=== PATIENT | female | born 1985 | race Caucasian/White ===

== ENCOUNTER → 2016-07-23 | Outpatient (CLI) | payer OTHER ==
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
== END ==
LOC: M PAIN 11:20
PROVIDERS: ATTEND Nurse Practitioner Family
DX: G89.29 Other chronic pain (principal); G54.0 Brachial plexus disorders; M79.1 Myalgia; R25.2 Cramp and spasm; M41.25 Other idiopathic scoliosis, thoracolumbar region; J45.909 Unspecified asthma, uncomplicated; K21.9 Gastro-esophageal reflux disease without esophagitis; L30.9 Dermatitis, unspecified; Z79.891 Long term (current) use of opiate analgesic; Z79.899 Other long term (current) drug therapy; Z91.410 Personal history of adult physical and sexual abuse

== ENCOUNTER → 2016-08-06 | Outpatient (CLI) | payer BC ==
--- NOTE | 2016-08-06 10:47 | REP ---
MR BRAIN WITHOUT AND WITH CONTRAST: HISTORY: Headaches. Contrast: ProHance 15.4 mL A single punctate focus of increased signal intensity on T2-weighted images is present in the periventricular white matter of the left parietal lobe. There is no intraparenchymal hemorrhage, infarct, mass or midline shift. There is no abnormal enhancement. The ventricular system is normal in appearance. There is no extracerebral collection. A tasha cisterna magna is present. Mucosal thickening is present in the ethmoid and right maxillary sinuses. IMPRESSION: There is a single punctate focus of increased signal intensity in the periventricular white matter of the left parietal lobe. This is a nonspecific finding. Signed by Juan Boothe MD 08/06/2016 10:48 A
== END ==
LOC: M RAD 08:53
PROVIDERS: ATTEND Nurse Practitioner Family
DX: R25.2 Cramp and spasm (principal)
CPT/HCPCS: 70553; A9576

== ENCOUNTER → 2019-12-10 | Outpatient (CLI) | payer OTHER | LOC: M LABSMTC 14:16 | PROVIDERS: ATTEND Family Medicine | DX: Z11.59 Encounter for screening for other viral diseases (principal); Z20.828 Contact with and (suspected) exposure to other viral communicable diseases | CPT/HCPCS: C9803; U0003 ==

== ENCOUNTER 2020-02-04 17:50 | Emergency (ER) | payer OTHER ==
[2020-02-04] MEDS ORDERED: ACETAMINOPHEN 500 MG TAB As Ordered ONE (21:06)
[2020-02-04] MEDS ORDERED: BACTRIM 160MG/800MG DS TAB As Ordered ONE (21:06)
[2020-02-05] MEDS ORDERED: ACETAMINOPHEN SUSP DYE FREE 160 MG/5 ML UDC ONE (12:58)
[2020-02-05] MEDS ORDERED: ACETAMINOPHEN SUSP DYE FREE 160 MG/5 ML UDC As Ordered ONE (12:58)
[2020-02-05] MEDS ORDERED: IBUPROFEN 100 MG/5 ML SUSP UDC DYE FREE ONE (12:58)
[2020-02-05] MEDS ORDERED: IBUPROFEN 100 MG/5 ML SUSP UDC DYE FREE As Ordered ONE (12:58)
[2020-03-02 17:18] LABS: ALBUMIN 3.4 GM/DL (3.2-5.2); ALT/SGPT 38 U/L (12-78); BILIRUBIN,DIRECT 0.2 MG/DL (0.0-0.2); BILIRUBIN,TOTAL 0.7 MG/DL (0.2-1.0); BLOOD UREA NITROGEN 9 MG/DL (7-18); CALCIUM LEVEL 8.9 MG/DL (8.5-10.1); CARBON DIOXIDE LEVEL 32 MEQ/L (21-32); CHLORIDE LEVEL 101 MEQ/L (98-107); CREATININE FOR GFR 0.73 MG/DL (0.55-1.30); GLOMERULAR FILTRATION RATE > 60.0 (>60); GLUCOSE, FASTING 104 MG/DL (70-100); SODIUM LEVEL 137 MEQ/L (136-145); TOTAL PROTEIN 7.6 GM/DL (6.4-8.2)
[2020-03-09 12:33] LABS: BASO # 0.1 10^3/uL (0.0-0.2); BASO % 0.4 % (0.0-1.0); EOS # 0.2 10^3/uL (0.0-0.5); EOS % 1.8 % (0.0-3.0); HEMOGLOBIN 13.4 g/dl (12.0-15.5); LYMPH # 2.4 10^3/uL (1.5-5.0); LYMPH % 19.5 % (24.0-44.0); MEAN CORPUSCULAR HEMOGLOBIN 28.7 pg (27.0-33.0); MEAN CORPUSCULAR HGB CONC 32.7 g/dl (32.0-36.5); MEAN CORPUSCULAR VOLUME 87.8 fl (80.0-96.0); MONO # 0.9 10^3/uL (0.0-0.8); MONO % 7.6 % (0.0-5.0); NEUTROPHILS # 8.6 10^3/uL (1.5-8.5); NEUTROPHILS % 70.4 % (36.0-66.0); PLATELET COUNT, AUTOMATED 319 10^3/uL (150-450); RED BLOOD COUNT 4.67 10^6/uL (4.00-5.40); WHITE BLOOD COUNT 12.2 10^3/uL (4.0-10.0)
[2020-03-09 12:34] LABS: ERYTHROCYTE SEDIMENTATION RATE 42 mm/hr (0-20)
== END 2020-02-04 21:09 | disposition home or self-care (01) ==
LOC: M ED 17:50
DX: S50.02XA Contusion of left elbow, initial encounter (principal); L03.112 Cellulitis of left axilla; X58.XXXA Exposure to other specified factors, initial encounter; Y92.89 Other specified places as the place of occurrence of the external cause; J45.909 Unspecified asthma, uncomplicated

== ENCOUNTER 2020-11-26 21:20 | Inpatient (IN) | payer OTHER ==
[~2020-11-26] VITALS: Ht 167.6 cm; Wt 59.4 kg
[2020-11-26 22:37] LABS: HEMATOCRIT 41.9 % (36.0-47.0); HEMOGLOBIN 13.6 g/dl (12.0-15.5); MEAN CORPUSCULAR HEMOGLOBIN 28.6 pg (27.0-33.0); MEAN CORPUSCULAR HGB CONC 32.5 g/dl (32.0-36.5); MEAN CORPUSCULAR VOLUME 88.2 fl (80.0-96.0); PLATELET COUNT, AUTOMATED 446 10^3/uL (150-450); RED BLOOD COUNT 4.75 10^6/uL (4.00-5.40); WHITE BLOOD COUNT 8.9 10^3/uL (4.0-10.0)
[2020-11-26 23:08] LABS: HCG, SERUM QUALITATIVE NEGATIVE (NEGATIVE)
[2020-11-26 23:11] LABS: AMPHETAMINES LEVEL URINE POSITIVE (NEGATIVE); BARBITURATES URINE NEGATIVE (NEGATIVE); BENZODIAZEPINES URINE NEGATIVE (NEGATIVE); CANNABINOIDS URINE NEGATIVE (NEGATIVE); COCAINE METABOLITE URINE NEGATIVE (NEGATIVE); METHADONE URINE NEGATIVE (NEGATIVE); OPIATES URINE NEGATIVE (NEGATIVE); PHENCYCLIDINE URINE NEGATIVE (NEGATIVE)
[2020-11-26 23:15] LABS: ACETAMINOPHEN LEVEL < 2.0 UG/ML (10.0-30.0); ALT/SGPT 22 U/L (12-78); BILIRUBIN,DIRECT < 0.1 MG/DL (0.0-0.2); BILIRUBIN,TOTAL 0.4 MG/DL (0.2-1.0); BLOOD UREA NITROGEN 10 MG/DL (7-18); CALCIUM LEVEL 9.2 MG/DL (8.5-10.1); CARBON DIOXIDE LEVEL 33 MEQ/L (21-32); CHLORIDE LEVEL 103 MEQ/L (98-107); CREATININE FOR GFR 0.79 MG/DL (0.55-1.30); ETHYL ALCOHOL (ETHANOL) < 0.003 % (0.000-0.010); GLOMERULAR FILTRATION RATE > 60.0 (>60); GLUCOSE, FASTING 115 MG/DL (70-100); POTASSIUM SERUM 3.9 MEQ/L (3.5-5.1); SALICYLATE LEVEL < 1.7 MG/DL (5.0-30.0); SODIUM LEVEL 139 MEQ/L (136-145); TOTAL PROTEIN 8.8 GM/DL (6.4-8.2)
[2020-11-27 00:45] LABS: CPK CREATINE PHOSPHOKINASE 102 U/L (26-192)
[2020-11-27] MEDS ORDERED: ACETAMINOPHEN TAB 650MG DOSE (2X325MG) PO PRN (03:50)
[2020-11-27] MEDS ORDERED: MAALOX 30 ML SUSP *UDC PO PRN (03:50)
[2020-11-27] MEDS ORDERED: LORazepam 2 MG TAB PO PRN (03:50)
[2020-11-27] MEDS ORDERED: MOM 30ML SUSPENSION UDC PO PRN (03:50)
[2020-11-27] MEDS ORDERED: OLANZapine ORAL DISINTEGRATING TAB 5MG PO PRN (03:50)
[2020-11-27] MEDS ORDERED: PROAAER10 INH (03:55)
[2020-11-27] MEDS ORDERED: AUGM875T28 PO (03:55)
--- NOTE | 2020-11-27 05:40 | ECGEPIP ---
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
[2020-11-27] MEDS: THIAMINE 100 MG TAB PO SCH ×2 (06:02→21:00)
[2020-11-27 08:25] VITALS: BP 160/86
[2020-11-27] MEDS: MULTIVITAMINS/MINERALS THERAP 1 TAB PO SCH (09:00)
[2020-11-27] MEDS: FOLIC ACID 1 MG TAB PO SCH (09:00)
--- NOTE | 2020-11-27 11:45 | HPEPDOC ---
[facility] Medical History & Physical Date of Admission November 26, 2020 Date of Service: November 27, 2020 Attending Physician: Suyapa Figueroa MD History and Physical MEDICAL CONSULT HISTORY OF PRESENT ILLNESS: Patient is a 35 y/o F with PMH of depression with hx of suicidal attempt who was admitted to inpatient mental health on 11/26/2020 after having come in to the emergency room admitting to suicidal thoughts. The patient stated that she's attempted to kill herself with drug overdosing but was unsuccessful with sleeping pills outside hospital. She admits to suicidal ideation often, no current plans in place outside of what she said she's already done. The patient appeared disheveled had admitted to increased lethargy and is a polysubstance drug abuser. The patient denies auditory or visual hallucinations, homicidal ideations but admits to poor sleep. The patient was admitted to inpatient mental health for unspecified depressive disorder, suicidal ideation. During my evaluation of patient on 11/27/2020, patient denied current suicidal thoughts but admitted to all of the above. Denies chest pain, shortness of breath, n/v/d, fevers, chills. REVIEW OF SYSTEMS: Neg except what is mentioned above PAST MEDICAL HISTORY: depression with hx of suicidal attempt polysubstance abuse childhood asthma PAST SURGICAL HISTORY: Cleft lip repair Feeding tube placement and removal FAMILY HISTORY: Father: HTn. Alive Mother: breast cancer. at 54 y/o SOCIAL HISTORY: Denies smoking. Hx of alcohol abuse. Amphetamine (last use several days ago) and heroin (last use >3 months ago) abuse. Currently homeless. Followed with [facility] José. No PCP. Full Code ALLERGIES: Please see below. HOME MEDICATIONS: Please see below. PHYSICAL EXAMINATION: VS: Please see below CONSTITUTIONAL: No acute distress, AAO x 3 EYES: PERRLA, EOM intact HENT, MOUTH: Normocephalic, atraumatic, moist mucous membranes NECK: SUPPLE, no JVD, no lymphadenopathy, no carotid bruit CV: Regular rate and rhythm, S1S2 normal, no murmurs/rubs/gallops RESPIRATORY: Clear to auscultation bilaterally, no rales/rhonchi/wheezes GI: BS positive in 4 quadrants, soft, nontender, nondistended, no rebound or guarding, no organomegaly : Deferred MUSCULOSKELETAL: Normal ROM. No cyanosis, clubbing, swelling, joint deformity, extremity edema INTEGUMENTARY: Intact, no rashes, no lesions, no erythema NEUROLOGIC: Cranial Nerves II-XII are intact, no focal deficits PSYCHIATRIC: depressed mood, flat affect LABORATORY DATA: Please see below IMAGING: None ASSESSMENT: 35 y/o F with PMH of depression with hx of suicidal attempt who was admitted to inpatient mental health on 11/26/2020 for unspecified depressive d/o, suicidal thoughts. PLAN: Depression, suicidal ideation -Plan per psychiatry team Polysubstance abuse -Currently no s/s of withdrawl -UDS+ -Monitor closely DISPOSITION: Thank you kindly for this consult. Will sign off but if we are needed again, please call us at any time for reassessment. Vital Signs Vital Signs Date Time Temp Pulse Resp B/P (MAP) Pulse Ox O2 Delivery O2 Flow Rate FiO2 11/27/20 08:25 78 160/86 11/27/20 08:25 98.4 16 Room Air 11/27/20 06:55 97 Laboratory Data Labs 24H Laboratory Tests 2 11/26/20 21:35: Nucleated Red Blood Cells % (auto) 0.0, Anion Gap 3L, Glomerular Filtration Rate > 60.0, Calcium Level 9.2, Total Bilirubin 0.4, Direct Bilirubin < 0.1, Aspartate Amino Transf (AST/SGOT) 14, Alanine Aminotransferase (ALT/SGPT) 22, Alkaline Phosphatase 105, Total Creatine Kinase 102, Total Protein 8.8H, Albumin 4.0, Albumin/Globulin Ratio 0.8L, Thyroid Stimulating Hormone (TSH) 1.440, Human Chorionic Gonadotropin, Qual NEGATIVE, Salicylates Level < 1.7L, Urine Opiates Screen NEGATIVE, Urine Methadone Screen NEGATIVE, Acetaminophen Level < 2.0L, Urine Barbiturates Screen NEGATIVE, Urine Phencyclidine Screen NEGATIVE, Urine Amphetamines Screen POSITIVEH, Urine Benzodiazepines Screen NEGATIVE, Urine Cocaine Metabolite Screen NEGATIVE, Urine Cannabinoids Screen NEGATIVE, Ethyl Alcohol Level < 0.003 CBC/BMP Laboratory Tests 11/26/20 21:35 Microbiology Microbiology 11/26/20 Respiratory Virus Panel (PCR) (SAM) - Final, Complete Home Medications Scheduled Amoxicillin/Potassium Clav (Augmentin 875-125 Tablet) 1 Each Tablet, 875 MG PO BID STARTED 11/18/20 Scheduled PRN Albuterol Sulfate (Proair Hfa) 8.5 Gm Hfa.aer.ad, 2 PUFF INH QID PRN for SHORTNESS OF BREATH Allergies Coded Allergies: No Known Allergies (Unverified , 11/26/20) A-FIB/CHADSVASC A-FIB History Current/History of A-Fib/PAF?: No Current PO Anticoag Therapy: No Age/Risk Factor Scoring CHADSVASC: CHADSVASC Response (Comments) Value Age Risk Factor Age < 65 years old 0 Gender Risk Factor Female 1 Hx of CHF No 0 Hx of HTN No 0 Hx of Stroke/TIA/or VTE No 0 Hx of Diabetes No 0 Hx of Vascular Disease No 0 Total 1 Treatment Treatment ordered: NONE Other anticoagulant ordered: none Suyapa Figueroa MD November 27, 2020 11:45
--- NOTE | 2020-11-27 13:56 | MHHPEPDOC ---
General Date Of Admission: November 27, 2020 Legal Status: 9.39 Chief Complaint "I thought I could get help but it's too late, I let my life get out of control." History of Present Illness HISTORY OF THE PRESENT ILLNESS: Patient is a 35 -year-old Single, Disabled, Undomiciled, , female, who reports that she has suicidal thoughts and had an attempted overdose propr to this admission that she did not disclosed to anyone stated "it wasn't enough" She presents with severe depressed/sad mood, poor self-esteem, continued suicidal ideations "I am not worth the help" reports of guilt/hopelessness/helplessness and worthlessness. She stated in the interview "It's not right that people will treat someone badly because they have issues." Patient is quite tearful in the interview and is withdrawn and guarded and declines to answer many of the questions. States, "It's not worth it, I am not worth the help." PER ED REPORT: Pt self-presented to ED for increasing depression and suicidal thoughts. Pt self-presented to ED for increasing SI with plan to overdose and increasing depression. Pt reports daily substance abuse, heroin and meth, pt. last used earlier today, positive tox. Pt reports an attempted overdose on "a good handful" of sleeping pills, stated "it just wasn't enough I guess." Pt is guarded, did not want to discuss any specifics and did not answer many questions. Pt reports that she is recently homeless, staying with family prior, however did not disclose what led to her not staying there. Pt has no prior admissions, no OP services, no AH/VH, no HI, no medications. Pt reports sleeping excessively, stating "if I'm not doing drugs, I am asleep." Pt appears disheveled, avoided eye contact, and faced the wall during MHE. Psychiatric Review of Systems Depression (2 or more weeks): depressed mood, feelings of excess/guilt (hopeless, helpless), appetite changes, suicidal thoughts Lesa (4 or more days of): denies Psychosis: denies PTSD: history of trauma, other (patient won't disclose any information) Anxiety: situational anxiety, stressor related anxiety Past Psychiatric History Previous Psychiatric Diagnosis: Anxiety and Depression Previous Psychiatric Admissions: This is the first hospitalization Suicide Attempts: had an overdose Psychiatric Follow-up: [facility] a "few years ago" Psychiatric medications: Lexapro, Zoloft, Xanax in the past Past Medical History Medical Problems depression with hx of suicidal attempt polysubstance abuse childhood asthma Cleft lip repair Feeding tube placement and removal Head Injury: No Seizures: No Hospitalizations: Yes Surgeries: Yes Family Medical/Psychiatric HX Medical Problems Father - alive with HTN Mother - Cancer Psychiatric Disorders: Yes (Bipolar, Sister) Addiction: Yes (father - Alcohol) Suicide Attemps/Completions: No Addiction History methamphetamines (last used 11/26/20), heroin (in the past) Social History Childhood: She was born in [place], [place] reports that her childhood was "ok" I had everything I needed, "It was my parents (Dad was ) and my sister. My grandparents were around too" Abuse/Trauma: Yes but wont' disclose information Current Living Situation: Was living with family, but states that she lives alone (Per ED report she is homeless) Education: High School Graduate Employment: Unemployed, states that she does not receive assistance Stressors: "I beat myself up over everything" Social Support: Reports none Legal: None Marital: Single. Mental Status Examination General Appearance: unkempt, disheveled, ds/not appear stated age (appears older), hospital scubs/clothing Build: average Demeanor: mistrustful, withdrawn, guarded Eye Contact: poor Activity: anxious Behavior: loss of interests, anhedonia, withdrawn Speech: low in volume Mood: depressed, anxious Affect: constricted, anxious Thought Process: logical/linear, depressed, slow Thought Content (Delusions): none reported Thought Content (Other): guarded Thought Content (Aggressive): none reported Perception (Hallucinations): none reported Perception (Other): none reported Cognition (Impairment of): none reported Cognition(Intelligence Est.): average Oriented: Awake, Alert, Oriented times three Insight: other (impaired) Judgment: Other (impaired) Psychosis: Denies Diagnoses Major Depressive Disorder, Single Episode, Moderate Methamphetamine Use Disorder Heroin Use Disorder A-FIB/CHADSVASC A-FIB History Current/History of A-Fib/PAF?: No Current PO Anticoag Therapy: No Age/Risk Factor Scoring CHADSVASC: CHADSVASC Response (Comments) Value Age Risk Factor Age < 65 years old 0 Gender Risk Factor Female 1 Hx of CHF No 0 Hx of HTN No 0 Hx of Stroke/TIA/or VTE No 0 Hx of Diabetes No 0 Hx of Vascular Disease No 0 Total 1 Assessment Patient is a 35 -year-old Single, Disabled, Undomiciled, , female, who reports that she has suicidal thoughts and had an attempted overdose propr to this admission that she did not disclosed to anyone stated "it wasn't enough" She presents with severe depressed/sad mood, poor self-esteem, continued suicidal ideations "I am not worth the help" reports of guilt/hopelessness/helplessness and worthlessness. She stated in the interview "It's not right that people will treat someone badly because they have issues." Patient is quite tearful in the interview and is withdrawn and guarded and decl salud to answer many of the questions. States, "It's not worth it, I am not worth the help." Patient is alert and oriented, very guarded and withdrawn. She is very tearful in the interview. Calm and Cooperative although states that she wants to go, she doesn't need the help because other people are worse off than she is.. She makes poor eye contact, her speech is spontaneous but impoverished many times in the interview. She denies any psychotic symptoms (no AH/VH/TH, denies manic symptoms, paranoia, delusions or bizarre thoughts) Her cognition/Intelligence is alert and oriented, average. Memory is intact. Depressed mood and constricted/flat affect. Impaired insight and judgment. Pat ient to be admitted to my service on a .39 legal status. Diagnosis Major Depressive Disorder, Single Episode, Moderate. Will start patient on Wellbutrin 50 mg today and titrate to therapeutic levels, Zyprexa Zydis 5 mg Q 6HOurs for agitation. Zofran 4 mg BID for nausea, Clonidine 01.mg patch. Initial Treatment Plan 1. Patient was admitted on a [9.39] status. 2. Complete history was obtained. 3. With patients permission, family will be contacted and database will be ex panded. 4. Patients medication regimen will be reviewed and changed accordingly. 5. Patient will be provided with protected environment. 6. Patient will be treated with individual, group, and milieu therapies. 7. Patient will receive supportive psych-education. 8. Discharge planning will commence immediately. 9. Outpatient follow-up treatment will be strongly recommended. 10. The initial treatment plan will focus initially on: * Depression. * Risk for suicide. * Rehab treatment ESTIMATED LENGTH OF STAY: 5-7 DAYS. TIME SPENT COUNSELING AND COORDINATING INITIAL CARE: 60 minutes. N/A-No Antipsychotics Vital Signs Vital Signs Date Time Temp Pulse Resp B/P (MAP) Pulse Ox O2 Delivery O2 Flow Rate FiO2 11/27/20 08:25 78 160/86 11/27/20 08:25 98.4 16 Room Air 11/27/20 06:55 97 Laboratory Data 24H Labs Laboratory Tests 2 11/26/20 21:35: Nucleated Red Blood Cells % (auto) 0.0, Anion Gap 3L, Glomerular Filtration Rate > 60.0, Calcium Level 9.2, Total Bilirubin 0.4, Direct Bilirubin < 0.1, Aspartate Amino Transf (AST/SGOT) 14, Alanine Aminotransferase (ALT/SGPT) 22, Alkaline Phosphatase 105, Total Creatine Kinase 102, Total Protein 8.8H, Albumin 4.0, Albumin/Globulin Ratio 0.8L, Thyroid Stimulating Hormone (TSH) 1.440, Human Chorionic Gonadotropin, Qual NEGATIVE, Salicylates Level < 1.7L, Urine Opiates Screen NEGATIVE, Urine Methadone Screen NEGATIVE, Acetaminophen Level < 2.0L, Urine Barbiturates Screen NEGATIVE, Urine Phencyclidine Screen NEGATIVE, Urine Amphetamines Screen POSITIVEH, Urine Benzodiazepines Screen NEGATIVE, Urine Cocaine Metabolite Screen NEGATIVE, Urine Cannabinoids Screen NEGATIVE, Ethyl Alcohol Level < 0.003 CBC/BMP Laboratory Tests 11/26/20 21:35 Medications Scheduled Amoxicillin/Potassium Clav (Augmentin 875-125 Tablet) 1 Each Tablet, 875 MG PO BID, (Reported) STARTED 11/18/20 Scheduled PRN Albuterol Sulfate (Proair Hfa) 8.5 Gm Hfa.aer.ad, 2 PUFF INH QID PRN for SHORTNESS OF BREATH, (Reported) Allergies Coded Allergies: No Known Allergies (Unverified , 11/26/20) GARRY RODRIGUEZ NP November 27, 2020 13:07
[2020-11-27] MEDS ORDERED: ONDANSETRON 4 MG TAB PO PRN (14:10)
[2020-11-27] MEDS ORDERED: LOPERAMIDE 2 MG CAPLET PO PRN (14:10)
[2020-11-27 16:05] VITALS: BP 130/84
[2020-11-27 17:14] VITALS: BP 130/84
[2020-11-27] MEDS: traZODone 50 MG TAB PO PRN (21:07)
[2020-11-28] MEDS ORDERED: cloNIDine HCL 0.1 MG/24 HR PATCH TOP SCH (09:00)
[2020-11-28] MEDS: FOLIC ACID 1 MG TAB PO SCH (09:00)
[2020-11-28] MEDS: THIAMINE 100 MG TAB PO SCH ×2 (09:00→21:00)
[2020-11-28] MEDS: MULTIVITAMINS/MINERALS THERAP 1 TAB PO SCH (09:00)
[2020-11-28] MEDS: buPROPion 100 MG TAB PO SCH (09:00)
--- NOTE | 2020-11-28 10:40 | MHIPNPDOC ---
[facility] Progress Note Progress Note DATE OF SERVICE: 11/28/20 HISTORY: Patient is a 35 -year-old Single, Disabled, Undomiciled, , female, who reports that she has suicidal thoughts and had an attempted overdose prior to this admission that she did not disclosed to anyone stated "it wasn't enough" She presents with severe depressed/sad mood, poor self-esteem, continued suicidal ideations "I am not worth the help" reports of guilt/hopelessness/helplessness and worthlessness. She stated in the interview "It's not right that people will treat someone badly because they have issues." Patient is quite tearful in the interview and is withdrawn and guarded and declines to answer many of the questions. States, "It's not worth it, I am not worth the help." PER ED REPORT: Pt self-presented to ED for increasing depression and suicidal thoughts. Pt self-presented to ED for increasing SI with plan to overdose and increasing depression. Pt reports daily substance abuse, heroin and meth, pt. last used earlier today, positive tox. Pt reports an attempted overdose on "a good handful" of sleeping pills, stated "it just wasn't enough I guess." Pt is guarded, did not want to discuss any specifics and did not answer many questions. Pt reports that she is recently homeless, staying with family prior, however did not disclose what led to her not staying there. Pt has no prior admissions, no OP services, no AH/VH, no HI, no medications. Pt reports sleeping excessively, stating "if I'm not doing drugs, I am asleep." Pt appears disheveled, avoided eye contact, and faced the wall during MHE. VITAL SIGNS: See below. CURRENT MEDICATIONS: See below. MENTAL STATUS EXAMINATION: Patient is a 35 -year-old Single, Disabled, Undomiciled, , female, who reports that she has suicidal thoughts and had an attempted overdose prior to this admission that she did not disclosed to anyone stated "it wasn't enough" Speech: Is spontaneous low/slow rate, tone and volume Language skills are intact Thought processes including: linear and goal oriented Thought content: denies depression and anxiety. Denies suicidal/homicidal ideation, planning or intent. Abstract reasoning, and computation: fair Description of associations: denies, none observed Description of abnormal or psychotic thoughts: denies, none observed. Judgment: fair Insight: fair Orientation: alert and oriented to person, place, time and situation Recent and remote memory: intact Attention span and concentration: good Language: expansive Fund of knowledge: average Mood: Depressed Mood Affect: Constricted DIAGNOSES: Major Depressive Disorder, Single Episode, Moderate Methamphetamine Use Disorder Heroin Use Disorder ASSESSMENT: Patient reports no depressive or anxious symptoms but is observed to be depressed with constricted affect. She appears to be minimizing her symptoms and states that she needs to leave, get a job and find a place to live." She reports that she has a place to live and wants to be discharged. Patient appears to have rapid resolution and does not have good insight or judgment stating that she does not need medications or any help. She also stated that there is not any need for anyone to help her. She appears to be have severe self loathing of herself. "There is not help for me." Given that she had reported severe suicidal ideations and had an unreported suicide attempt, I do not feel patient is appropriate for discharge at this time. MANAGEMENT PLAN: Continue all medications, possible. discharge on Tuesday TIME SPENT: 25 minutes. Vital Signs Vital Signs Date Time Temp Pulse Resp B/P (MAP) Pulse Ox O2 Delivery O2 Flow Rate FiO2 11/27/20 17:14 108 130/84 11/27/20 16:05 97.1 16 11/27/20 08:25 Room Air 11/27/20 06:55 97 Current Medications Current Medications Medications (Trade) Dose Ordered Sig/Az Route PRN Reason Start Time Stop Time Status Last Admin Dose Admin Acetaminophen (Tylenol Tab) 650 mg Q6HP PRN PO HEADACHE or DISCOMFORT 11/27/20 03:50 Al Hydrox/Mg Hydrox/Simethicone (Mylanta) 30 ml Q4HP PRN PO HEARTBURN/INDIGESTION 11/27/20 03:50 Bupropion HCl (Wellbutrin) 50 mg DAILY PO 11/28/20 09:00 11/29/20 12:00 Bupropion HCl (Wellbutrin) 75 mg BID PO 11/30/20 09:00 Clonidine HCl (Lxtwxncy-Vwt-0) 1 ea Fr@09 TOP 11/28/20 09:00 Folic Acid (Folic Acid) 1 mg DAILY PO 11/27/20 09:00 Home Med (Med Rec Complete!) ASDIRECTED XX 11/27/20 03:55 11/27/20 03:57 DC Loperamide HCl (Imodium) 2 mg ASDIRECTED PRN PO DIARRHEA 11/27/20 14:10 Lorazepam (Ativan) 2 mg ASDIRECTED PRN PO SEE PROTOCOL 11/27/20 03:50 Magnesium Hydroxide (Milk Of Magnesia) 30 ml DAILYPRN PRN PO CONSTIPATION 11/27/20 03:50 Multivitamins (Theragram-M) 1 tab DAILY PO 11/27/20 09:00 Olanzapine (ZyPREXA ZYDIS) 5 mg Q4HP PRN PO AGITATION/ANXIETY 11/27/20 03:50 11/27/20 21:08 Ondansetron HCl (Zofran) 4 mg BIDP PRN PO NAUSEA 11/27/20 14:10 Thiamine HCl (Thiamine HCl) 100 mg BID PO 11/27/20 03:52 11/29/20 21:01 11/27/20 06:02 Trazodone HCl (Desyrel) 50 mg QHSP PRN PO INSOMNIA 11/27/20 03:50 11/27/20 21:07 Allergies Coded Allergies: No Known Allergies (Unverified , 11/26/20) GARRY RODRIGUEZ NP November 28, 2020 10:40
[2020-11-28] MEDS ORDERED: LORazepam 1 MG TAB PO ONE (13:10)
[2020-11-28 18:25] VITALS: BP 140/71
[2020-11-28 19:15] VITALS: BP 140/71
[2020-11-29 02:30] VITALS: BP 105/70
[2020-11-29 06:38] VITALS: BP 105/70
[2020-11-29] MEDS: THIAMINE 100 MG TAB PO SCH ×2 (09:00→20:22)
[2020-11-29] MEDS: FOLIC ACID 1 MG TAB PO SCH (09:00)
[2020-11-29] MEDS: MULTIVITAMINS/MINERALS THERAP 1 TAB PO SCH (09:00)
[2020-11-29] MEDS: buPROPion 100 MG TAB PO SCH (09:00)
[2020-11-29 16:49] VITALS: BP 125/69
--- NOTE | 2020-11-29 18:30 | MHIPN ---
PSYCHIATRIC HOSPITAL PROGRESS NOTE DATE: 11/29/2020 The patient is seen via telepsychiatry. The patient states that he is doing good and that he slept good, and that he has no complaints. MENTAL STATUS EXAMINATION: The patient is alert and oriented times three. Eye contact is fairly good. There is no formal thought disorder noted. He says his mood is good. Affect is flat. He is not psychotic, suicidal, or homicidal. Concentration is fair. Memory is intact. Insight and judgment fair. DIAGNOSES: 1. Major depressive disorder, single episode, moderate. 2. Methamphetamine use disorder. 3. Heroin use disorder. TREATMENT PLAN: At this point, we will continue to monitor the patient for continued elevation and stabilization of his mood and continued resolution of suicidal ideation.
[2020-11-29] MEDS: traZODone 50 MG TAB PO PRN (20:22)
[2020-11-30 06:42] VITALS: BP 100/55
[2020-11-30] MEDS: FOLIC ACID 1 MG TAB PO SCH (09:00)
[2020-11-30] MEDS: MULTIVITAMINS/MINERALS THERAP 1 TAB PO SCH (09:00)
[2020-11-30] MEDS: buPROPion 75 MG TAB PO SCH ×2 (09:00→21:00)
[2020-11-30 18:07] VITALS: BP 120/68
[2020-11-30 23:06] VITALS: BP 132/72
--- NOTE | 2020-11-30 23:24 | IPNPDOC ---
Text Note Date of Service The patient was seen on 11/30/20. NOTE Time of service 1123pm I received a call from the patient's RN that the pt rolled out of bed while sleeping and hit the right part of her face. At the time of my visit the pt was c/o facial pain and some neck pain w lateral movement. She was alert and able to answer questions appropriately Plan: acetaminophen/ neurochecks for 24H/ f/u CT head and neck / ice pack VS,Fishbone, I+O VS, Fishbone, I+O Vital Signs Date Time Temp Pulse Resp B/P (MAP) Pulse Ox O2 Delivery O2 Flow Rate FiO2 11/30/20 23:06 83 18 132/72 (92) 99 Room Air 11/30/20 18:07 98.9 ABISAI CALLAHAN MD November 30, 2020 23:24
--- NOTE | 2020-11-30 23:46 | REPVR ---
PROCEDURE INFORMATION: Exam: CT Head Without Contrast Exam date and time: 11/30/2020 11:32 PM Age: 35 years old Clinical indication: Injury or trauma; Fall; Blunt trauma (contusions or hematomas); Additional info: Fall onto right side of face TECHNIQUE: Imaging protocol: Computed tomography of the head without contrast. Radiation optimization: All CT scans at this facility use at least one of these dose optimization techniques: automated exposure control; mA and/or kV adjustment per patient size (includes targeted exams where dose is matched to clinical indication); or iterative reconstruction. COMPARISON: MRI-Brain W/O FOLL BY WITH 2016-08-06 09:17 FINDINGS: Limitations: Motion artifact does moderately limit the sensitivity of this examination. Brain: Steve cisterna magna, or small posterior fossa arachnoid cyst. Cerebral ventricles: No ventriculomegaly. Bones/joints: Unremarkable. No acute fracture. Paranasal sinuses: Visualized sinuses are unremarkable. No fluid levels. Mastoid air cells: Visualized mastoid air cells are well aerated. Soft tissues: Right periorbital soft tissue contusion. IMPRESSION: No acute intracranial abnormality. Electronically signed by: Dayday Hagan On 11/30/2020 23:45:53 PM
--- NOTE | 2020-11-30 23:49 | REPVR ---
PROCEDURE INFORMATION: Exam: CT Neck Without Contrast Exam date and time: 11/30/2020 11:32 PM Age: 35 years old Clinical indication: Injury or trauma; Fall; Blunt trauma (contusions or hematomas); Additional info: Neck pain after a fall TECHNIQUE: Imaging protocol: Computed tomography images of the neck without contrast. Radiation optimization: All CT scans at this facility use at least one of these dose optimization techniques: automated exposure control; mA and/or kV adjustment per patient size (includes targeted exams where dose is matched to clinical indication); or iterative reconstruction. COMPARISON: No relevant prior studies available. FINDINGS: Nasopharynx: Unremarkable. Oropharynx: Unremarkable. No significant tonsillar enlargement. Hypopharynx: Unremarkable. Larynx: Unremarkable. Normal epiglottis. Retropharyngeal space: Unremarkable. Submandibular/Parotid glands: Normal. Glands are normal in size. Thyroid: Normal. No enlarged or calcified nodules. Lymph nodes: Unremarkable. No lymphadenopathy. Trachea: Visualized trachea is unremarkable. Lungs: Unremarkable as visualized. Bones/joints: Small C4-C6 disc bulge/protrusions with mild stenosis. Normal spinal curvature, vertebral body heights, and alignment. No spinal fracture or acute subluxation. Soft tissues: Unremarkable. No significant soft tissue swelling. IMPRESSION: 1. No acute vertebral fracture/subluxation. 2. Small C4-C6 disc bulge/protrusions with mild stenosis. Electronically signed by: Dayday Hagan On 11/30/2020 23:49:17 PM
[2020-12-01 07:11] VITALS: BP 95/57
[2020-12-01] MEDS: FOLIC ACID 1 MG TAB PO SCH (09:00)
[2020-12-01] MEDS: MULTIVITAMINS/MINERALS THERAP 1 TAB PO SCH (09:00)
[2020-12-01] MEDS: buPROPion 75 MG TAB PO SCH (09:00)
[2020-12-01] MEDS ORDERED: BUPR75TA5 PO (09:40)
[2020-12-01] MEDS ORDERED: TRAZ-252 PO (09:40)
--- NOTE | 2020-12-01 12:04 | MHDSPDOC ---
[facility] Discharge Summary Discharge Summary DATE OF ADMISSION: November 26, 2020 at 21:21 DATE OF DISCHARGE: December 01, 2020 at 1151 DISCHARGE DIAGNOSES: 1. Major depressive disorder, single episode, moderate. 2. Methamphetamine use disorder. 3. Heroin use disorder. REASON FOR ADMISSION:Patient is a 35 -year-old Single, Disabled, Undomiciled, female, who reports that she has suicidal thoughts and had an attempted overdose prior to this admission that she did not disclosed to anyone stated "it wasn't enough" She presents with severe depressed/sad mood, poor self-esteem, continued suicidal ideations "I am not worth the help" reports of guilt/hopelessness/helplessness and worthlessness. She stated in the interview "It's not right that people will treat someone badly because they have issues." Patient is quite tearful in the interview and is withdrawn and guarded and declines to answer many of the questions. States, "It's not worth it, I am not worth the help." PER ED REPORT: Pt self-presented to ED for increasing depression and suicidal thoughts. Pt self-presented to ED for increasing SI with plan to overdose and increasing depression. Pt reports daily substance abuse, heroin and meth, pt. last used earlier today, positive tox. Pt reports an attempted overdose on "a good handful" of sleeping pills, stated "it just wasn't enough I guess." Pt is guarded, did not want to discuss any specifics and did not answer many questions. Pt reports that she is recently homeless, staying with family prior, however did not disclose what led to her not staying there. Pt has no prior admissions, no OP services, no AH/VH, no HI, no medications. Pt reports sleeping excessively, stating "if I'm not doing drugs, I am asleep." Pt appears dis heveled, avoided eye contact, and faced the wall during MHE. VITAL SIGNS: See below. CONSULTANTS INVOLVED: See Medical H + P by Hospitalist TREATMENT AND PROGRESS ON THE UNIT: Patient was admitted to the [facility] on a legal status he was afforded the following treatment modalities: 1) Individual Therapy 2) Group Therapy 3) Medication Management 4) Milieu Therapy 5) Safe Environment HOSPITAL COURSE: Patient was admitted to [facility] on a legal status. She was requesting to be discharged on the day that she had been initially seen for her psychiatric evaluation. Although she had denied any suicidal thoughts, depression or anxiety she had cried throughout most of her interview and was held over the weekend. She had been observed with poor self-esteem, anxiety and depressed mood. She had rapid resolution with regards to her suicidality. In today's meeting, she had improved in her mood and affect but she reported that she did not rehab or any help with substance use. Attempted to work with the patient to discuss her use and she declined to engage in the interview. Patient is requesting to be discharged, stating that she is not a danger to herself or others and that she is returning to her Grandmother's home. States that she is following up at [facility], she declines any help with medications. She is agreeable to Wellbutrin and Trazodone. DISCHARGE ASSESSMENT: In today's interview, patient is alert and oriented, pts dress is appropriate. Hygiene and grooming is well-kempt. Smiles on approach and is pleasant and engaged in the interview. Denies depression and anxiety. Denies suicidal and homicidal ideation, planning or intent. Denies and is not observed with kiki, psychotic symptoms of delusions, bizarre thinking, obsessions, paranoia, ruminations illogical thoughts, flight of ideas or having poor insight and judgement. Patient has normal mentation, declines further hospitalization on a voluntary status and meets criteria for discharge today. Patient encouraged to return to hospital if symptoms worsen or change and encouraged to call unit if he/she/they needs to speak to provider for questions regarding medications or care. MENTAL STATUS EXAMINATION ON DISCHARGE: :Patient is a 35 -year-old Single, Disabled, Undomiciled, female, who reports that she has suicidal thoughts and had an attempted overdose prior to this admission Speech: Is fluid, conversant, normal rate, tone and volume Language skills are intact Thought processes including: linear and goal oriented Thought content: denies depression and anxiety. Denies suicidal/homicidal ideation, planning or intent. Abstract reasoning, and computation: fair Description of associations: denies, none observed Description of abnormal or psychotic thoughts: denies, none observed. Judgment: fair Insight: fair Orientation: alert and oriented to person, place, time and situation Recent and remote memory: intact Attention span and concentration: good Language: expansive Fund of knowledge: average Mood: Euthymic Mood Affect: Flat MEDICATIONS ON DISCHARGE: See Medication Reconciliation PLAN/FOLLOWUP ARRANGEMENTS: The amount of time spent in the coordination of care for this patient was approximately 25 minutes. ETOH/Disorder Med Rx ETOH/DRUG DISORDER RX: Offrd @ d/c & pt refused Vital Signs/I&Os Vital Signs Date Time Temp Pulse Resp B/P (MAP) Pulse Ox O2 Delivery O2 Flow Rate FiO2 12/01/20 07:11 98.7 66 18 95/57 (70) 99 Room Air Laboratory Data Microbiology Microbiology 11/26/20 Respiratory Virus Panel (PCR) (SAM) - Final, Complete Medications Scheduled Bupropion HCl (Bupropion HCl) 75 Mg Tablet, 75 MG PO BID for Depression, #14 Scheduled PRN Albuterol Sulfate (Proair Hfa) 8.5 Gm Hfa.aer.ad, 2 PUFF INH QID PRN for SHORTNESS OF BREATH, (Reported) Trazodone HCl (Trazodone HCl) 50 Mg Tablet, 50 MG PO QHSP PRN for INSOMNIA, #7 Allergies Coded Allergies: No Known Allergies (Unverified , 11/26/20) GARRY RODRIGUEZ [employer]IA SALES CONSULTANT December 01, 2020 11:52
--- NOTE | 2020-12-01 18:25 | MHIPN ---
[facility] PROGRESS NOTE DATE: 11/30/2020 CHIEF COMPLAINT: The patient states "I'm fine, I'm just tired." SUBJECTIVE: She says she slept good and has no complaints. MENTAL STATUS EXAMINATION: She is alert and oriented x3. Eye contact is fairly good. Psychomotor activity is normal. There is no formal thought disorder noted. Mood is "tired." Affect appropriate. She is not psychotic. She is denying suicidal or homicidal ideations. DIAGNOSES: 1. Major depressive disorder, single episode, moderate. 2. Methamphetamine use disorder. 3. Heroin use disorder. TREATMENT PLAN: At this point, we will continue to monitor the patient for continued elevation and stabilization of his mood and continued resolution of suicidal ideation. MICHAEL
== END 2020-12-01 12:35 | disposition home or self-care (01) | DRG 751 ==
LOC: M ED 21:20 → M PSY 21:21 → M ED INP 21:21 → M PSY 11-27 08:09
PROVIDERS: ADMIT Psychiatry & Neurology Psychiatry; ATTEND Psychiatry & Neurology Psychiatry
DX: F32.1 Major depressive disorder, single episode, moderate (principal); R45.851 Suicidal ideations; F11.10 Opioid abuse, uncomplicated; F15.10 Other stimulant abuse, uncomplicated; Z91.5 Personal history of self-harm; Z81.8 Family history of other mental and behavioral disorders; Z81.1 Family history of alcohol abuse and dependence; Z59.0 Homelessness; S00.83XA Contusion of other part of head, initial encounter; W06.XXXA Fall from bed, initial encounter; Y92.230 Patient room in hospital as the place of occurrence of the external cause

== ENCOUNTER 2020-12-18 20:22 | Emergency (ER) | payer OTHER ==
[~2020-12-18] VITALS: Ht 170.2 cm; Wt 54.5 kg
[~2020-12-18 20:22] MED LIST: AUGM875T28 PO; BUPR75TA5 PO; PROAAER10 INH; TRAZ-252 PO
[2020-12-18 21:34] LABS: HEMATOCRIT 39.3 % (36.0-47.0); HEMOGLOBIN 12.6 g/dl (12.0-15.5); MEAN CORPUSCULAR HGB CONC 32.1 g/dl (32.0-36.5); MEAN CORPUSCULAR VOLUME 90.6 fl (80.0-96.0); PLATELET COUNT, AUTOMATED 157 10^3/uL (150-450); RED BLOOD COUNT 4.34 10^6/uL (4.00-5.40); WHITE BLOOD COUNT 10.9 10^3/uL (4.0-10.0)
[2020-12-18 22:10] LABS: AMPHETAMINES LEVEL URINE POSITIVE (NEGATIVE); BARBITURATES URINE NEGATIVE (NEGATIVE); BENZODIAZEPINES URINE NEGATIVE (NEGATIVE); CANNABINOIDS URINE POSITIVE (NEGATIVE); COCAINE METABOLITE URINE NEGATIVE (NEGATIVE); HCG, SERUM QUALITATIVE NEGATIVE (NEGATIVE); METHADONE URINE NEGATIVE (NEGATIVE); OPIATES URINE NEGATIVE (NEGATIVE); PHENCYCLIDINE URINE NEGATIVE (NEGATIVE)
[2020-12-18 22:23] LABS: ACETAMINOPHEN LEVEL < 2.0 UG/ML (10.0-30.0); ALBUMIN 4.1 GM/DL (3.2-5.2); ALT/SGPT 34 U/L (12-78); BILIRUBIN,DIRECT 0.5 MG/DL (0.0-0.2); BILIRUBIN,TOTAL 2.8 MG/DL (0.2-1.0); BLOOD UREA NITROGEN 16 MG/DL (7-18); CARBON DIOXIDE LEVEL 25 MEQ/L (21-32); CHLORIDE LEVEL 104 MEQ/L (98-107); CREATININE FOR GFR 0.97 MG/DL (0.55-1.30); ETHYL ALCOHOL (ETHANOL) < 0.003 % (0.000-0.010); GLOMERULAR FILTRATION RATE > 60.0 (>60); GLUCOSE, FASTING 143 MG/DL (70-100); POTASSIUM SERUM 3.2 MEQ/L (3.5-5.1); SALICYLATE LEVEL < 1.7 MG/DL (5.0-30.0); SODIUM LEVEL 139 MEQ/L (136-145); THYROID STIMULATING HORMONE 0.973 uIU/ML (0.358-3.740); TOTAL PROTEIN 8.1 GM/DL (6.4-8.2)
[2020-12-19 16:34] VITALS: BP 110/62
== END 2020-12-19 16:39 | disposition home or self-care (01) ==
LOC: M ED 12-19 01:19
DX: Z04.6 Encounter for general psychiatric examination, requested by authority (principal); F19.129 Other psychoactive substance abuse with intoxication, unspecified; F33.9 Major depressive disorder, recurrent, unspecified; F17.200 Nicotine dependence, unspecified, uncomplicated; Z79.899 Other long term (current) drug therapy; Z91.5 Personal history of self-harm

== ENCOUNTER 2025-01-11 07:49 | Inpatient (IN) | payer OTHER ==
[~2025-01-11] VITALS: Ht 167.6 cm; Wt 56.5 kg
[2025-01-11] MEDS ORDERED: ESOM20CA2 PO (09:55)
[2025-01-11] MEDS ORDERED: ALBU8.5H INH (09:55)
[2025-01-11] MEDS ORDERED: HOME MED LIST COMPLETE! XX SCH (09:55)
[2025-01-11] MEDS ORDERED: GNPTAB35 PO (09:55)
[2025-01-11 10:41] LABS: BARBITURATES URINE NEGATIVE (NEGATIVE); BENZODIAZEPINES URINE NEGATIVE (NEGATIVE)
[2025-01-11 10:42] LABS: CANNABINOIDS URINE NEGATIVE (NEGATIVE); METHADONE URINE NEGATIVE (NEGATIVE); OPIATES URINE NEGATIVE (NEGATIVE); PHENCYCLIDINE URINE NEGATIVE (NEGATIVE)
[2025-01-11 10:45] LABS: PLATELET COUNT, AUTOMATED 209 10^3/uL (150-450)
[2025-01-11 10:46] LABS: AMPHETAMINES LEVEL URINE POSITIVE (NEGATIVE); COCAINE METABOLITE URINE POSITIVE (NEGATIVE)
[2025-01-11 10:58] LABS: ETHYL ALCOHOL (ETHANOL) < 0.003 % (0.000-0.010)
[2025-01-11 11:00] LABS: ALT/SGPT 11 U/L (7.0-40); AST/SGOT 11 U/L (<34); CALCIUM LEVEL 8.3 MG/DL (8.5-10.1); CARBON DIOXIDE LEVEL 26 MMOL/L (20-31); CHLORIDE LEVEL 106 MMOL/L (98-107); CREATININE FOR GFR 0.69 MG/DL (0.55-1.30); GLOMERULAR FILTRATION RATE > 90.0 (>60); POTASSIUM SERUM 4.0 MMOL/L (3.5-5.1); SALICYLATE LEVEL < 3.0 MG/DL (<30); SODIUM LEVEL 143 MMOL/L (136-145)
[2025-01-11 11:09] LABS: HCG, SERUM QUALITATIVE NEGATIVE (NEGATIVE)
[2025-01-11] MEDS ORDERED: IBUPROFEN 400 MG TAB PO PRN (11:55)
[2025-01-11] MEDS ORDERED: MOM 30 ML SUSPENSION UDC PO PRN (11:55)
[2025-01-11] MEDS ORDERED: traZODone 50 MG TAB PO PRN (11:55)
[2025-01-11] MEDS ORDERED: MAALOX 30 ML SUSP *UDC PO PRN (11:55)
[2025-01-11] MEDS ORDERED: ALBUTEROL 90 MCG/ACT 8 GM HFA INHALER INH PRN (12:00)
[2025-01-12 06:29] VITALS: BP 94/56; TEMP 97.8; O2SAT 100
[2025-01-12 07:41] VITALS: BP 101/61
[2025-01-12 15:33] VITALS: BP 99/52; TEMP 98; O2SAT 96
[2025-01-14] MEDS: ESCITALOPRAM OXALATE 10 MG TABLET PO SCH (10:45)
[2025-01-14 15:31] VITALS: BP 92/52; TEMP 97.7; O2SAT 99
[2025-01-15 06:28] VITALS: BP 131/72; TEMP 98.4; O2SAT 97
[2025-01-16 06:08] VITALS: BP 103/59; TEMP 97.8; O2SAT 96
[2025-01-18 06:55] VITALS: BP 95/55; TEMP 98.8; O2SAT 100
[2025-01-18] MEDS: OLANZapine 5 MG TAB PO SCH (09:25)
[2025-01-19 06:45] VITALS: BP 107/57; TEMP 98.2; O2SAT 98
[2025-01-21 06:39] VITALS: BP 83/57; TEMP 97.8; O2SAT 99
[2025-01-22] MEDS: ESCITALOPRAM OXALATE 5 MG TABLET PO SCH (09:41)
[2025-01-22] MEDS: OLANZapine 5 MG TAB PO SCH (21:00)
[2025-01-23 06:22] VITALS: BP 128/61; TEMP 97.8; O2SAT 99
[2025-01-24 06:06] VITALS: BP 122/74; TEMP 97.9; O2SAT 99
[2025-01-24] MEDS ORDERED: OLAN1TAB16 PO (08:56)
[2025-01-24] MEDS ORDERED: LEXA5TAB13 PO (08:56)
[2025-01-24] MEDS: ACETAMINOPHEN 325 MG TAB PO PRN (12:36)
== END 2025-01-24 14:25 | disposition home or self-care (01) | DRG 751 ==
LOC: M ED 07:49 → M ED INP 11:55 → M PSY 13:34
PROVIDERS: ADMIT General Practice; ATTEND General Practice
DX: F33.9 Major depressive disorder, recurrent, unspecified (principal); E66.9 Obesity, unspecified; F15.90 Other stimulant use, unspecified, uncomplicated; F14.90 Cocaine use, unspecified, uncomplicated; F12.90 Cannabis use, unspecified, uncomplicated; F41.1 Generalized anxiety disorder; F11.90 Opioid use, unspecified, uncomplicated; R63.4 Abnormal weight loss; Z59.00 Homelessness unspecified; Z79.899 Other long term (current) drug therapy